=== PATIENT | male | born 2000 | race Caucasian/White ===

== ENCOUNTER 2024-10-26 16:10 | Emergency (ER) | payer OTHER ==
[~2024-10-26] VITALS: Ht 167.6 cm
[2024-10-26] MEDS ORDERED: SODIUM CHLORIDE 0.9% 1,000 ML IV ONE (16:35)
[2024-10-26 16:49] LABS: BASO # 0.1 10*3/uL (0.0-0.1); BASO % 0.6 % (0.0-1.0); EOS # 0.1 10*3/uL (0.0-0.4); EOS % 0.6 % (1.0-4.0); MEAN CELL VOLUME 89.8 fl (80.0-94.0); MEAN CORPUSCULAR HGB 28.9 pg (27.0-31.0); MEAN PLATELET VOLUME 11.9 fl (9.6-12.3); MONO # 0.6 10*3/uL (0.1-1.0); MONO % 6.4 % (3.0-9.0); NEUT # 6.9 10*3/uL (2.3-7.9); NEUT % 72.3 % (47.0-73.0); NUCLEATED RED BLOOD CELL 0.0 % (0.0-0.0); NUCLEATED RED BLOOD CELL 0.0 10*3/uL (0.0-0.0); PLATELET COUNT AUTOMATED 262 10*3/uL (130-400); RED CELL DISTRI WIDTH 12.1 % (0-14.5)
[2024-10-26 17:09] LABS: BUN 12 mg/dl (9-23)
== END 2024-10-26 18:38 | disposition home or self-care (01) ==
LOC: ED 16:10
PROVIDERS: Emergency Medicine
DX: R00.2 Palpitations (principal); M79.602 Pain in left arm; R42 Dizziness and giddiness; R53.1 Weakness

== ENCOUNTER 2025-01-18 18:56 | Emergency (ER) | payer OTHER ==
[~2025-01-18] VITALS: Ht 167.6 cm; Wt 49.9 kg
[2025-01-18] MEDS ORDERED: BUSPIRONE HCL10 MG PO (19:11)
[2025-01-18] MEDS ORDERED: busPIRone Hydrochloride 5 MG TAB PO ONE (19:30)
[2025-01-18] MEDS ORDERED: busPIRone Hydrochloride 7.5 MG TAB PO ONE (19:30)
[2025-01-18] MEDS ORDERED: BUSPIRONE10 MG PO (19:33)
== END 2025-01-18 19:58 | disposition home or self-care (01) ==
LOC: ED 18:56
DX: F41.9 Anxiety disorder, unspecified (principal); R10.9 Unspecified abdominal pain; Z76.0 Encounter for issue of repeat prescription; Z79.899 Other long term (current) drug therapy